=== PATIENT | female | born 1970 | race Caucasian/White ===

== ENCOUNTER 2017-06-23 14:20 | Emergency (ER) | payer SELFPAY ==
[~2017-06-23] VITALS: Ht 160 cm; Wt 78.9 kg
[~2017-06-23 14:20] MED LIST: NOHOMEMEDS; [UNRECOGNIZED DRUG - REMARK]
[2017-06-23 14:33] VITALS: BP 169/87
== END 2017-06-23 15:09 | disposition left against medical advice (07) ==
LOC: EME 14:20
DX: R55 Syncope and collapse (principal); Z53.21 Procedure and treatment not carried out due to patient leaving prior to being seen by health care provider